=== PATIENT | female | born 1960 | race African-American/Black ===

== ENCOUNTER 2020-02-08 07:28 | Emergency (ER) | payer SELFPAY ==
[~2020-02-08] VITALS: Ht 157.5 cm; Wt 82.0 kg
[2020-02-08 08:00] VITALS: BP 168/90
[2020-02-08] MEDS ORDERED: KETOROLAC 30MG/ML VIAL IM ONE (08:15)
[2020-02-08] MEDS ORDERED: CYCLOBENZAPRINE 10MG TABLET PO ONE (08:15)
== END 2020-02-08 09:27 | disposition home or self-care (01) ==
LOC: ER 09:15
DX: M54.5 Low back pain (principal); I10 Essential (primary) hypertension; Z88.8 Allergy status to other drugs, medicaments and biological substances
CPT/HCPCS: 96372; 99283; J1885